=== PATIENT | female | born 1965 | race Caucasian/White ===

== ENCOUNTER 2019-01-16 15:15 | Emergency (ER) | payer BC, OTHER ==
[~2019-01-16] VITALS: Ht 149.9 cm; Wt 64.4 kg
[2019-01-16] MEDS ORDERED: LIDOCAINE 1%-EPI 1:100K, 20ML SQ ONE (15:30)
[2019-01-16] MEDS ORDERED: DIPH,PERTUSS(ACELL),TET VAC/PF 0.5 ML IM-VACC ONE ×2 (15:30→15:39)
[2019-01-16] MEDS ORDERED: LORazepam 0.5MG TABLET ONE (15:39)
[2019-01-16] MEDS ORDERED: HYDROmorphone 2 MG/ML, 1ML ONE (15:39)
[2019-01-16] MEDS ORDERED: LIDOCAINE 1%-EPI 1:100K, 20ML ONE ×2 (15:44→16:02)
--- NOTE | 2019-01-16 15:55 | NUR ---
0.5 ativan tablet adminitered. 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 andre rn physically witnessed waste
[2019-01-16] MEDS ORDERED: HYDROmorphone 2 MG/ML, 1ML IM ONE (16:00)
[2019-01-16] MEDS ORDERED: LORazepam 0.5MG TABLET PO ONE (16:00)
--- NOTE | 2019-01-16 16:10 | NUR ---
PROVIDER NEEDED A TOTAL OF 40ML OF 1% LIDO W/ EPI FOR COMPLETE LOCAL ANESTHESIA
--- NOTE | 2019-01-16 16:40 | NUR ---
PROVIDER AT BEDSIDE SUTURING COMPLEX LACERATION AFTER RADIOLOGY READ VITALS STABLE ON 2L NC (NARCOTICS) PAIN REPORTED AT "10/25"
[2019-01-16 16:57] VITALS: BP 122/42
[2019-01-16] MEDS ORDERED: LIDOCAINE 1%-EPI 1:100K, 20ML INFIL ONE (17:00)
--- NOTE | 2019-01-16 17:22 | NUR ---
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 PATIENT DAUGHTERS. ANIMANL KNOWN TO HAVE UTD VACCINES
[2019-01-16] MEDS ORDERED: BACITRACIN ZINC OINT 500U/GM, 0.9 GM ONE (17:24)
--- NOTE | 2019-01-16 18:09 | NUR ---
Patient and caregivers given discharge instructions and they have confirmed that they understand the instructions. Patient ambulatory with steady gait. Pt left with prescription, d/c paperwork, and all personal belongings.
== END 2019-01-16 18:12 | disposition home or self-care (01) ==
LOC: ED 17:32
DX: S40.872A Other superficial bite of left upper arm, initial encounter (principal); W54.0XXA Bitten by dog, initial encounter; Y93.89 Activity, other specified; Y92.009 Unspecified place in unspecified non-institutional (private) residence as the place of occurrence of the external cause; Y99.8 Other external cause status
CPT/HCPCS: 12035; 73060; 90471; 90715; 96372; 99285; J1170; J3490